=== PATIENT | male | born 1935 | race African-American/Black ===

== ENCOUNTER 2019-01-05 11:27 | Inpatient (IN) | payer MEDICARE, MEDICAID ==
[~2019-01-05] VITALS: Ht 185.4 cm; Wt 80.7 kg
[2019-01-05] MEDS ORDERED: SODIUM CHLORIDE 0.9% 1,000 ML IV ONE (12:02)
[2019-01-05 12:59] LABS: BASOPHILS % 0.3 % (0.0-2.0); EOSINOPHILS % 0.2 % (0.0-5.0); HEMATOCRIT. 39.7 % (42.0-52.0); HEMOGLOBIN. 13.2 g/dL (14.0-18.0); LYMPHOCYTES % 9.4 % (20.0-50.0); MEAN CORPUSCULAR HEMOGLOBIN 29.1 pg (28.0-32.0); MEAN CORPUSCULAR VOLUME 87.9 fL (80.0-94.0); MEAN PLATELET VOLUME 9.6 fl (7.4-10.4); MONOCYTES % 9.8 % (2.0-8.0); NEUTROPHILS % 80.3 % (40.0-76.0); PLATELET 161 x1000/uL (130-400); RED BLOOD CELL COUNT 4.52 mill/uL (4.7-6.1); RED CELL DISTRIBUTION WIDTH 15.4 % (11.6-14.6)
[2019-01-05 13:05] LABS: CHLORIDE 117 mEq/L (98-107)
[2019-01-05 13:09] LABS: ETHANOL BLOOD < 10 mg/dL
[2019-01-05] MEDS ORDERED: ASPIRIN 300MG SUPP PR ONE (13:30)
[2019-01-05] MEDS ORDERED: ENOXAPARIN 100MG/ML SYR SUBCUT ONE (13:30)
[2019-01-05 15:14] LABS: CLARITY URINE CLEAR (CLEAR); COLOR URINE YELLOW (YELLOW); KETONES URINE TRACE (NEGATIVE); OCCULT BLOOD URINE 2+ (NEGATIVE); PH URINE 5.5 (4.5-8.0); PROTEIN URINE 1+ (NEGATIVE); SPECIFIC GRAVITY URINE 1.015 (1.005-1.030)
[2019-01-05 15:15] LABS: LEUKOCYTE ESTERASE URINE NEGATIVE (NEGATIVE); NITRITE URINE NEGATIVE (NEGATIVE)
[2019-01-05] MEDS ORDERED: HYDRALAZINE 20MG/ML VIAL IV ONE (16:00)
[2019-01-05] MEDS ORDERED: ALBUTEROL (0.083%) 2.5MG/3ML NEB HHN ONE (16:00)
[2019-01-05 16:39] LABS: *AMPHETAMINES SCREEN URINE NEGATIVE (NEGATIVE); *BARBITURATES SCREEN URINE NEGATIVE (NEGATIVE); *BENZODIAZEPINES SCREEN URINE NEGATIVE (NEGATIVE); *COCAINE SCREEN URINE NEGATIVE (NEGATIVE); CANNABINOID URINE SCREEN NEGATIVE (NEGATIVE); METHADONE URINE SCREEN NEGATIVE (NEGATIVE); OPIATES URINE SCREEN NEGATIVE (NEGATIVE); PHENCYCLIDINE URINE SCREEN NEGATIVE (NEGATIVE)
[2019-01-05 16:51] LABS: BG BASE EXCESS -7.7 mmol/L (-2.0-2.0); BG DEOXYHEMOGLOBIN 1.5 % (0.0-5.0); BG FRACTION INSPIRED OXYGEN 36; BG HCO3 ACT 15.5 mmol/L (22.0-26.0); BG METHEMOGLOBIN 0.2 % (0.0-1.5); BG OXYGEN SATURATION 98.5 % (92.0-98.5); BG OXYHEMOGLOBIN 98.3 % (94.0-97.0); BG PCO2 25.7 mmHg (35.0-45.0); BG PH 7.398 (7.350-7.450); BG PO2 145.4 mmHg (75.0-100.0); BG SAMPLE SITE LEFT BRACHIAL; BG TOTAL HEMOGLOBIN 12.4 g/dL (12.0-18.0); BG VENT MODE NASAL CANNULA
[2019-01-05 18:30] VITALS: BP 177/98
[2019-01-05] MEDS: HYDRALAZINE 20MG/ML VIAL IV PRN (19:15)
[2019-01-05 20:00] VITALS: BP 129/55
[2019-01-05] MEDS ORDERED: CLONIDINE 0.1MG TABLET PO PRN (21:00)
[2019-01-05] MEDS ORDERED: ENOXAPARIN 30MG/0.3ML SYR SUBCUT SCH (21:30)
[2019-01-05 22:00] VITALS: BP 134/72
[2019-01-05] MEDS: NITROGLYCERIN OINT 1GM/INCH UDPKT TD SCH (22:08)
[2019-01-05] MEDS: DEXT 5%/0.2% NACL 1,000 ML IV SCH (22:54)
[2019-01-06] VITALS (11 sets, daily range): BP systolic 136–165; BP diastolic 72–95
[2019-01-06] MEDS: NITROGLYCERIN OINT 1GM/INCH UDPKT TD SCH ×3 (05:51→22:06)
[2019-01-06 06:46] LABS: BASOPHILS % 0.2 % (0.0-2.0); EOSINOPHILS % 0.3 % (0.0-5.0); HEMATOCRIT. 36.6 % (42.0-52.0); HEMOGLOBIN. 11.9 g/dL (14.0-18.0); LYMPHOCYTES % 12.2 % (20.0-50.0); MEAN CORPUSCULAR HEMOGLOBIN 29.1 pg (28.0-32.0); MEAN CORPUSCULAR VOLUME 89.2 fL (80.0-94.0); MONOCYTES % 8.5 % (2.0-8.0); NEUTROPHILS % 78.8 % (40.0-76.0); PLATELET 153 x1000/uL (130-400); RED CELL DISTRIBUTION WIDTH 15.1 % (11.6-14.6)
[2019-01-06 07:49] LABS: CHLORIDE 121 mEq/L (98-107)
[2019-01-06 07:58] LABS: HDL CHOLESTEROL 61 mg/dL (40-59)
[2019-01-06 08:01] LABS: CREATINE KINASE MB FRACTION 10.9 ng/mL (0.5-3.6)
[2019-01-06 08:04] LABS: LDL CHOLESTEROL 98 mg/dL (5-100); PHOSPHORUS 3.6 mg/dL (2.5-4.9)
[2019-01-06 08:12] LABS: CREATINE KINASE 2147 IU/L (39-308)
[2019-01-06] MEDS: FAMOTIDINE 20MG/2ML VIAL IV SCH (09:16)
[2019-01-06] MEDS: DEXT 5%/0.2% NACL 1,000 ML IV SCH (09:20)
[2019-01-06] MEDS: ENOXAPARIN 80MG/0.8ML SYR SUBCUT SCH (13:20)
[2019-01-06] MEDS ORDERED: ISOS20TA57 MT (14:32)
[2019-01-06] MEDS ORDERED: FOLI0.4T2 MT (14:32)
[2019-01-06] MEDS ORDERED: AMLO10TA80 MT (14:32)
[2019-01-06] MEDS ORDERED: FURO-151 MT (14:32)
[2019-01-06] MEDS ORDERED: LOPHC2 MT (14:32)
[2019-01-06] MEDS ORDERED: CHOL50004 MT (14:32)
[2019-01-06] MEDS ORDERED: CLON1PAT11 TP (14:32)
[2019-01-06] MEDS ORDERED: FERR325T6 MT (14:32)
[2019-01-06] MEDS ORDERED: ATOR10TA69 MT (14:32)
[2019-01-06] MEDS ORDERED: CALC-25 MT (14:32)
[2019-01-06] MEDS ORDERED: ASPI-1393 MT (14:32)
[2019-01-06] MEDS: ATORVASTATIN CALCIUM 20MG TABLET PO SCH (21:00)
[2019-01-06] MEDS ORDERED: ENOXAPARIN 30MG/0.3ML SYR SUBCUT SCH (21:00)
[2019-01-07] VITALS (12 sets, daily range): BP systolic 135–166; BP diastolic 67–93
[2019-01-07] MEDS: DEXT 5%/0.2% NACL 1,000 ML IV SCH ×2 (03:47→13:09)
[2019-01-07] MEDS: NITROGLYCERIN OINT 1GM/INCH UDPKT TD SCH ×2 (05:20→13:02)
[2019-01-07 07:17] LABS: CHLORIDE 121 mEq/L (98-107)
[2019-01-07 07:24] LABS: BASOPHILS % 0.5 % (0.0-2.0); EOSINOPHILS % 2.4 % (0.0-5.0); HEMATOCRIT. 33.5 % (42.0-52.0); HEMOGLOBIN. 11.2 g/dL (14.0-18.0); LYMPHOCYTES % 17.5 % (20.0-50.0); MEAN CORPUSCULAR HEMOGLOBIN 29.6 pg (28.0-32.0); MEAN CORPUSCULAR VOLUME 88.5 fL (80.0-94.0); MEAN PLATELET VOLUME 10.5 fl (7.4-10.4); MONOCYTES % 9.3 % (2.0-8.0); NEUTROPHILS % 70.3 % (40.0-76.0); PLATELET 140 x1000/uL (130-400); RED BLOOD CELL COUNT 3.78 mill/uL (4.7-6.1); RED CELL DISTRIBUTION WIDTH 15.4 % (11.6-14.6)
[2019-01-07 07:30] LABS: HDL CHOLESTEROL 57 mg/dL (40-59)
[2019-01-07 07:32] LABS: LDL CHOLESTEROL 93 mg/dL (5-100)
[2019-01-07 07:44] LABS: CREATINE KINASE 3139 IU/L (39-308)
[2019-01-07] MEDS: FAMOTIDINE 20MG/2ML VIAL IV SCH (08:38)
[2019-01-07] MEDS: CLOPIDOGREL 75MG TABLET PO SCH (09:00)
[2019-01-07 10:42] LABS: T4 FREE 1.34 ng/dL (0.76-1.46)
[2019-01-07] MEDS: ASPIRIN 81MG EC TABLET PO SCH (13:00)
[2019-01-07] MEDS: ENOXAPARIN 80MG/0.8ML SYR SUBCUT SCH (13:01)
[2019-01-07 16:08] LABS: FOLIC ACID (FOLATE) SERUM 5.2 ng/mL (>5.38)
[2019-01-07] MEDS ORDERED: LACTULOSE 20G/30ML UDC PO PRN (17:00)
[2019-01-07] MEDS ORDERED: LORAZEPAM 2MG/ML CPJ IV PRN (17:00)
[2019-01-07] MEDS: THIAMINE HCL 100MG TABLET PO SCH (20:49)
[2019-01-07] MEDS: ATORVASTATIN CALCIUM 20MG TABLET PO SCH (20:50)
[2019-01-07] MEDS: DEXTROSE 5% WATER 1,000 ML IV SCH (20:50)
[2019-01-07] MEDS ORDERED: CLONIDINE 0.1MG TABLET PO PRN (21:00)
[2019-01-08] VITALS (12 sets, daily range): BP systolic 117–175; BP diastolic 22–100
[2019-01-08] MEDS: NITROGLYCERIN OINT 1GM/INCH UDPKT TD SCH ×2 (05:35→14:40)
[2019-01-08 05:47] LABS: INR 1.2; PROTHROMBIN TIME 12.4 sec (9.6-11.0)
[2019-01-08 06:08] LABS: BASOPHILS % 0.3 % (0.0-2.0); EOSINOPHILS % 1.9 % (0.0-5.0); HEMATOCRIT. 36.8 % (42.0-52.0); LYMPHOCYTES % 15.7 % (20.0-50.0); MEAN CORPUSCULAR HEMOGLOBIN 29.3 pg (28.0-32.0); MEAN PLATELET VOLUME 10.4 fl (7.4-10.4); MONOCYTES % 11.3 % (2.0-8.0); NEUTROPHILS % 70.8 % (40.0-76.0); PLATELET 143 x1000/uL (130-400); RED BLOOD CELL COUNT 4.09 mill/uL (4.7-6.1); RED CELL DISTRIBUTION WIDTH 15.4 % (11.6-14.6)
[2019-01-08 08:45] LABS: CHLORIDE 118 mEq/L (98-107)
[2019-01-08 08:56] LABS: CREATINE KINASE MB FRACTION 6.7 ng/mL (0.5-3.6)
[2019-01-08 09:12] LABS: CREATINE KINASE 3006 IU/L (39-308)
[2019-01-08] MEDS: DEXTROSE 5% WATER 1,000 ML IV SCH (10:25)
[2019-01-08] MEDS: MULTIVITAMINS,THER W-MINERALS TABLET PO SCH (10:51)
[2019-01-08] MEDS: FOLIC ACID 1MG TABLET PO SCH (10:51)
[2019-01-08] MEDS: THIAMINE HCL 100MG TABLET PO SCH (10:51)
[2019-01-08] MEDS: ASPIRIN 81MG EC TABLET PO SCH (10:51)
[2019-01-08] MEDS: CLOPIDOGREL 75MG TABLET PO SCH (10:51)
[2019-01-08] MEDS: FAMOTIDINE 20MG/2ML VIAL IV SCH (10:52)
[2019-01-08] MEDS: CYANOCOBALAMIN 1000MCG/ML VIAL IM SCH (12:57)
[2019-01-08] MEDS: ENOXAPARIN 80MG/0.8ML SYR SUBCUT SCH (14:41)
[2019-01-08] MEDS: PIPERACILLIN/TAZOBACTAM 2.25 G in DEXTROSE 5% WATER 50 ML IV SCH ×2 (17:45→22:11)
[2019-01-08] MEDS: ACETAMINOPHEN 325MG TABLET PO PRN ×2 (17:45→22:07)
[2019-01-08] MEDS: ATORVASTATIN CALCIUM 20MG TABLET PO SCH (21:08)
[2019-01-09] VITALS (14 sets, daily range): BP systolic 59–163; BP diastolic 34–91
[2019-01-09] MEDS: NITROGLYCERIN OINT 1GM/INCH UDPKT TD SCH ×2 (02:41→13:51)
[2019-01-09] MEDS: DEXTROSE 5% WATER 1,000 ML IV SCH ×2 (03:05→19:45)
[2019-01-09] MEDS: PIPERACILLIN/TAZOBACTAM 2.25 G in DEXTROSE 5% WATER 50 ML IV SCH ×3 (04:43→16:30)
[2019-01-09] MEDS: ACETAMINOPHEN 325MG TABLET PO PRN ×2 (04:44→21:20)
[2019-01-09 06:44] LABS: BASOPHILS % 0.4 % (0.0-2.0); EOSINOPHILS % 2.8 % (0.0-5.0); HEMATOCRIT. 34.1 % (42.0-52.0); HEMOGLOBIN. 11.3 g/dL (14.0-18.0); LYMPHOCYTES % 13.2 % (20.0-50.0); MEAN CORPUSCULAR HEMOGLOBIN 29.4 pg (28.0-32.0); MEAN CORPUSCULAR VOLUME 89.1 fL (80.0-94.0); MEAN PLATELET VOLUME 10.3 fl (7.4-10.4); MONOCYTES % 11.5 % (2.0-8.0); NEUTROPHILS % 72.1 % (40.0-76.0); PLATELET 144 x1000/uL (130-400); RED BLOOD CELL COUNT 3.83 mill/uL (4.7-6.1); RED CELL DISTRIBUTION WIDTH 14.8 % (11.6-14.6)
[2019-01-09] MEDS: FAMOTIDINE 20MG/2ML VIAL IV SCH (09:00)
[2019-01-09] MEDS: CYANOCOBALAMIN 1000MCG/ML VIAL IM SCH (09:00)
[2019-01-09] MEDS: ASPIRIN 81MG EC TABLET PO SCH (09:49)
[2019-01-09] MEDS: MULTIVITAMINS,THER W-MINERALS TABLET PO SCH (09:49)
[2019-01-09] MEDS: FOLIC ACID 1MG TABLET PO SCH (09:49)
[2019-01-09] MEDS: CLOPIDOGREL 75MG TABLET PO SCH (09:49)
[2019-01-09] MEDS: THIAMINE HCL 100MG TABLET PO SCH (09:50)
[2019-01-09] MEDS: ENOXAPARIN 80MG/0.8ML SYR SUBCUT SCH (13:50)
[2019-01-09] MEDS: HYDRALAZINE 20MG/ML VIAL IV PRN (16:30)
[2019-01-09] MEDS ORDERED: POTASSIUM CHLORIDE 20MEQ/PACKET PO NR (17:45)
[2019-01-09] MEDS: ATORVASTATIN CALCIUM 20MG TABLET PO SCH (21:20)
[2019-01-10] VITALS (13 sets, daily range): BP systolic 99–161; BP diastolic 40–98
[2019-01-10] MEDS: PIPERACILLIN/TAZOBACTAM 2.25 G in DEXTROSE 5% WATER 50 ML IV SCH ×5 (01:23→22:24)
[2019-01-10] MEDS: NITROGLYCERIN OINT 1GM/INCH UDPKT TD SCH ×2 (01:25→14:13)
[2019-01-10] MEDS: ONDANSETRON HCL 4MG/2ML INJ IV PRN (04:19)
[2019-01-10] MEDS: HYDROCODONE/ACETAMINOPHEN 5/325MG TABLET PO PRN ×2 (04:19→15:56)
[2019-01-10 07:01] LABS: BASOPHILS % 0.3 % (0.0-2.0); EOSINOPHILS % 1.4 % (0.0-5.0); HEMATOCRIT. 32.5 % (42.0-52.0); HEMOGLOBIN. 10.6 g/dL (14.0-18.0); LYMPHOCYTES % 10.4 % (20.0-50.0); MEAN CORPUSCULAR HEMOGLOBIN 29.3 pg (28.0-32.0); MEAN CORPUSCULAR VOLUME 89.7 fL (80.0-94.0); MEAN PLATELET VOLUME 10.4 fl (7.4-10.4); NEUTROPHILS % 76.9 % (40.0-76.0); RED BLOOD CELL COUNT 3.62 mill/uL (4.7-6.1); RED CELL DISTRIBUTION WIDTH 15.3 % (11.6-14.6)
[2019-01-10] MEDS: MULTIVITAMINS,THER W-MINERALS TABLET PO SCH (08:53)
[2019-01-10] MEDS: THIAMINE HCL 100MG TABLET PO SCH (08:53)
[2019-01-10] MEDS: ASPIRIN 81MG EC TABLET PO SCH (08:53)
[2019-01-10] MEDS: CLOPIDOGREL 75MG TABLET PO SCH (08:53)
[2019-01-10] MEDS: FOLIC ACID 1MG TABLET PO SCH (08:53)
[2019-01-10] MEDS: CYANOCOBALAMIN 1000MCG/ML VIAL IM SCH (08:54)
[2019-01-10] MEDS: FAMOTIDINE 20MG/2ML VIAL IV SCH (09:50)
[2019-01-10] MEDS: DEXTROSE 5% WATER 1,000 ML IV SCH (12:34)
[2019-01-10] MEDS: ENOXAPARIN 80MG/0.8ML SYR SUBCUT SCH (14:13)
[2019-01-10 18:42] LABS: PLATELET 120 x1000/uL (130-400)
[2019-01-10] MEDS: DIPHENHYDRAMINE 50MG/ML VIAL IV PRN (20:29)
[2019-01-10] MEDS: ATORVASTATIN CALCIUM 20MG TABLET PO SCH (20:29)
[2019-01-11] VITALS (13 sets, daily range): BP systolic 133–158; BP diastolic 43–94
[2019-01-11] MEDS: ONDANSETRON HCL 4MG/2ML INJ IV PRN ×2 (00:49→21:20)
[2019-01-11] MEDS: NITROGLYCERIN OINT 1GM/INCH UDPKT TD SCH ×2 (00:50→15:06)
[2019-01-11] MEDS: PIPERACILLIN/TAZOBACTAM 2.25 G in DEXTROSE 5% WATER 50 ML IV SCH ×4 (04:15→22:51)
[2019-01-11] MEDS: DIPHENHYDRAMINE 50MG/ML VIAL IV PRN ×2 (04:15→22:51)
[2019-01-11 06:41] LABS: BASOPHILS % 0.3 % (0.0-2.0); EOSINOPHILS % 3.8 % (0.0-5.0); HEMATOCRIT. 33.9 % (42.0-52.0); HEMOGLOBIN. 11.1 g/dL (14.0-18.0); LYMPHOCYTES % 12.4 % (20.0-50.0); MEAN CORPUSCULAR HEMOGLOBIN 29.3 pg (28.0-32.0); MEAN CORPUSCULAR VOLUME 89.7 fL (80.0-94.0); MEAN PLATELET VOLUME 10.8 fl (7.4-10.4); MONOCYTES % 13.2 % (2.0-8.0); NEUTROPHILS % 70.3 % (40.0-76.0); PLATELET 164 x1000/uL (130-400); RED BLOOD CELL COUNT 3.78 mill/uL (4.7-6.1); RED CELL DISTRIBUTION WIDTH 15.4 % (11.6-14.6)
[2019-01-11] MEDS: DEXTROSE 5% WATER 1,000 ML IV SCH (07:06)
[2019-01-11] MEDS: CLOPIDOGREL 75MG TABLET PO SCH (09:30)
[2019-01-11] MEDS: MULTIVITAMINS,THER W-MINERALS TABLET PO SCH (09:30)
[2019-01-11] MEDS: ASPIRIN 81MG EC TABLET PO SCH (09:30)
[2019-01-11] MEDS: THIAMINE HCL 100MG TABLET PO SCH (09:30)
[2019-01-11] MEDS: FOLIC ACID 1MG TABLET PO SCH (09:30)
[2019-01-11] MEDS: CYANOCOBALAMIN 1000MCG/ML VIAL IM SCH (09:30)
[2019-01-11] MEDS: FAMOTIDINE 20MG/2ML VIAL IV SCH (13:07)
[2019-01-11] MEDS: ENOXAPARIN 80MG/0.8ML SYR SUBCUT SCH (15:07)
[2019-01-11] MEDS: ATORVASTATIN CALCIUM 20MG TABLET PO SCH (21:00)
[2019-01-11] MEDS: IPRATROPIUM/ALBUTEROL 0.5-3(2.5)MG/3ML NEB HHN PRN (21:50)
[2019-01-12] VITALS (7 sets, daily range): BP systolic 110–135; BP diastolic 37–86
[2019-01-12] MEDS: DEXTROSE 5% WATER 1,000 ML IV SCH (01:04)
[2019-01-12] MEDS: NITROGLYCERIN OINT 1GM/INCH UDPKT TD SCH ×2 (01:04→15:40)
[2019-01-12] MEDS: ONDANSETRON HCL 4MG/2ML INJ IV PRN (02:05)
[2019-01-12] MEDS: DIPHENHYDRAMINE 50MG/ML VIAL IV PRN (05:40)
[2019-01-12] MEDS: PIPERACILLIN/TAZOBACTAM 2.25 G in DEXTROSE 5% WATER 50 ML IV SCH ×2 (05:40→12:07)
[2019-01-12 05:53] LABS: INR 1.2; PROTHROMBIN TIME 12.2 sec (9.6-11.0)
[2019-01-12 06:18] LABS: BASOPHILS % 0.4 % (0.0-2.0); EOSINOPHILS % 0.7 % (0.0-5.0); HEMATOCRIT. 31.2 % (42.0-52.0); HEMOGLOBIN. 10.3 g/dL (14.0-18.0); LYMPHOCYTES % 7.8 % (20.0-50.0); MEAN CORPUSCULAR HEMOGLOBIN 29.7 pg (28.0-32.0); MEAN CORPUSCULAR VOLUME 89.8 fL (80.0-94.0); MONOCYTES % 13.6 % (2.0-8.0); NEUTROPHILS % 77.5 % (40.0-76.0); PLATELET 157 x1000/uL (130-400); RED BLOOD CELL COUNT 3.47 mill/uL (4.7-6.1); RED CELL DISTRIBUTION WIDTH 15.2 % (11.6-14.6)
[2019-01-12] MEDS: CYANOCOBALAMIN 1000MCG/ML VIAL IM SCH (09:05)
[2019-01-12] MEDS: FAMOTIDINE 20MG/2ML VIAL IV SCH (09:05)
[2019-01-12] MEDS: MULTIVITAMINS,THER W-MINERALS TABLET PO SCH (09:05)
[2019-01-12] MEDS: FOLIC ACID 1MG TABLET PO SCH (09:05)
[2019-01-12] MEDS: THIAMINE HCL 100MG TABLET PO SCH (09:05)
[2019-01-12] MEDS: IPRATROPIUM/ALBUTEROL 0.5-3(2.5)MG/3ML NEB HHN PRN (12:35)
[2019-01-12] MEDS: ENOXAPARIN 80MG/0.8ML SYR SUBCUT SCH (15:41)
== END 2019-01-12 16:16 | disposition expired | DRG 64 ==
LOC: EDBD 11:45 → ER 11:45 → 5EST 13:49 → EDBEDREQSVC 13:54 → EDBEDREQ 13:54 → EDBEDREQTM 13:54 → ENRESERV 15:57 → 5EST 01-06 23:06
PROVIDERS: ADMIT Internal Medicine; ATTEND Internal Medicine
PROC: 0BH17EZ Insertion of Endotracheal Airway into Trachea, Via Natural or Artificial Opening (ICD-10-PCS; principal; 2019-01-12)
PROC: 5A12012 Performance of Cardiac Output, Single, Manual (ICD-10-PCS; 2019-01-12)
PROC: 06HY33Z Insertion of Infusion Device into Lower Vein, Percutaneous Approach (ICD-10-PCS; 2019-01-12)
PROC: B54BZZA Ultrasonography of Right Lower Extremity Veins, Guidance (ICD-10-PCS; 2019-01-12)
DX: I63.9 Cerebral infarction, unspecified (principal); I21.3 ST elevation (STEMI) myocardial infarction of unspecified site; G93.41 Metabolic encephalopathy; I50.43 Acute on chronic combined systolic (congestive) and diastolic (congestive) heart failure; J69.0 Pneumonitis due to inhalation of food and vomit; M62.82 Rhabdomyolysis; I69.351 Hemiplegia and hemiparesis following cerebral infarction affecting right dominant side; N17.9 Acute kidney failure, unspecified; R41.4 Neurologic neglect syndrome; E46 Unspecified protein-calorie malnutrition; D68.59 Other primary thrombophilia; E87.0 Hyperosmolality and hypernatremia; I13.0 Hypertensive heart and chronic kidney disease with heart failure and stage 1 through stage 4 chronic kidney disease, or unspecified chronic kidney disease; I42.9 Cardiomyopathy, unspecified; E87.1 Hypo-osmolality and hyponatremia; I31.3 Pericardial effusion (noninflammatory); I82.4Y2 Acute embolism and thrombosis of unspecified deep veins of left proximal lower extremity; N39.0 Urinary tract infection, site not specified; R47.01 Aphasia; I46.9 Cardiac arrest, cause unspecified; E78.5 Hyperlipidemia, unspecified; R13.10 Dysphagia, unspecified; D64.9 Anemia, unspecified; I27.20 Pulmonary hypertension, unspecified; I65.22 Occlusion and stenosis of left carotid artery; N18.9 Chronic kidney disease, unspecified; E53.8 Deficiency of other specified B group vitamins; E78.00 Pure hypercholesterolemia, unspecified; I25.10 Atherosclerotic heart disease of native coronary artery without angina pectoris; I44.7 Left bundle-branch block, unspecified; I70.0 Atherosclerosis of aorta; Z78.1 Physical restraint status; Z79.899 Other long term (current) drug therapy; I25.2 Old myocardial infarction; Z68.23 Body mass index [BMI] 23.0-23.9, adult; Z79.82 Long term (current) use of aspirin
CPT/HCPCS: 36415; 36600; 70544; 70547; 70551; 71045; 76770; 78582; 80048; 80061; 80305; 80320; 81003; 82140; 82375; 82550; 82553; 82607; 82746; 82805; 82962; 83036; 83735; 84100; 84439; 84443; 84481; 84484; 85379; 92610; 92950; 93005; 93306; 93880; 93970; 93971; 94640; 97163; 97167; 99291; A6261; A9558; J0360; J1200; J1650; J2060; J2405; J2543; J3420; J3490; J7030; J7060; J7070; J7611; J7620; G0480